=== PATIENT | female | born 1950 | race Caucasian/White ===

== ENCOUNTER 2018-11-19 23:08 | Emergency (ER) | payer OTHER ==
[2018-11-19 23:30] VITALS: TEMP 97.5; BMI 23.5
--- NOTE | 2018-11-20 01:10 | PDOC ---
History of Present Illness - General Chief Complaint: Pain Stated Complaint: POSSIBLE FX LT WRIST Time Seen by Provider: 11/20/18 01:09 History Source: Patient Exam Limitations: No Limitations - History of Present Illness Initial Comments: 11/20/18 01:23 68yo woman, pmh htn, high cholesterol, pituitary tumor, multiple LUE fractures with hardware fixation presenting after a fall onto LUE. Reports hearing a popping sound and losing the ability to pronate her left wrist. Endorses immediate swelling after the event. Has been icing the location and taking tylenol for pain control to good effect. Denies numbness / tingling in the fingers. PMH: as above PSH: as above Allergies: Ampicillin / PCN - Rash (remote) - denies anaphylaxis Codeine - nausea Past History - Past Medical History Allergies/Adverse Reactions: Allergies Allergy/AdvReac Type Severity Reaction Status Date / Time ampicillin Allergy Verified 12/28/12 20:39 Penicillins Allergy Verified 12/28/12 20:39 codeine AdvReac Verified 12/28/12 20:39 Home Medications: Ambulatory Orders Atorvastatin Ca [Lipitor -] 40 mg PO HS 01/23/13 Cabergoline [Dostinex] 0.5 mg PO DAILY 01/23/13 Docosahexanoic Acid/Epa [Fish Oil Softgel] 1 each PO DAILY 01/23/13 Hydrochlorothiazide [Hctz -] 12.5 mg PO DAILY 01/23/13 Quinapril HCl [Accupril] 40 mg PO DAILY 01/23/13 Cancer: Yes (pitutary tumor) COPD: No HTN: Yes Hypercholesterolemia: Yes - Surgical History Neurologic Surgery: Yes (pitutary tumor removal) - Immunization History Td Vaccination: Yes TDAP Vaccination: Yes Immunization Up to Date: Yes - Suicide/Smoking/Psychosocial Hx Smoking Status: No Smoking History: Never smoked Number of Cigarettes Smoked Daily: 0 Hx Alcohol Use: No Drug/Substance Use Hx: No Review of Systems - Review of Systems Able to Perform ROS?: Yes Is the patient limited Danish proficient: No *Physical Exam - Vital Signs Last Vital Signs Temp Pulse Resp BP Pulse Ox 97.5 F L 63 20 135/70 96 11/19/18 23:21 11/19/18 23:21 11/19/18 23:21 11/19/18 23:21 11/19/18 23:21 - Physical Exam Comments: 11/20/18 01:28 VS: reviewed, afebrile, vitals stable Gen: WDWN, sitting in bed with ice pack on her wrist HEENT: normal morphologies, EOMI, NCAT CV: RRR Pulm: normal work of breathing, comfortable Extremities: 2+ radial pulses, normal capillary refill bilaterally, surgical scars overlying left arm, left distal forearm with swelling on dorsum, no ecchymosis or erythema, not grossly displaced, forearm compartments soft Neuro: symmetric sensation in hands and fingers, exam limited by pain with supination of the left forearm. MSE: alert and oriented Medical Decision Making - Medical Decision Making 11/20/18 01:33 68yo woman, pmh htn, high cholesterol, pituitary tumor s/p resection, multiple LUE fractures with hardware fixation presenting after a fall onto LUE at 7PM this evening. History concerning for FOOSH with audible pop, 2x prior fracture fixation in LUE, physical exam notable for limited ROM on supination / pronation on the left, neurovascularly intact with soft compartments. Together concerning for possible fracture. - Pain well controlled with home acetaminophen - Xray hand, wrist, forearm, elbow *DC/Admit/Observation/Transfer Diagnosis at time of Disposition: Wrist pain, left Fall Qualifiers: Encounter type: initial encounter Qualified Code(s): W19.XXXA - Unspecified fall, initial encounter - Discharge Dispostion Disposition: HOME Condition at time of disposition: Improved Decision to Admit order: No - Referrals Referrals: Manuel Barajas MD [Staff Physician] - Dave Greer DO [Staff Physician] - Alvaro York MD [Primary Care Provider] - Chris Lynn MD [Staff Physician] - - Patient Instructions Printed Discharge Instructions: How To Perform RICE (Rest, Ice, Compress, Elevate), DI for Wrist Pain Additional Instructions: You came to the ED for arm pain. Xrays did not show acute pathology. You can take [id number] tylenol for pain. Follow the instructions on the medication bottle. Please review the handout about R.I.C.E (rest, ice, compression, elevation) We have referred you to an orthopedist. Call and make an appointment if your pain does not improve in the next 2-3 days. Immediate medical attention is required if you experience: any focal numbness or weakness, coldness in your limb, or any new or concerning symptoms. If you think you are having an emergency, call for emergency medical services or present to the emergency department right away. - Post Discharge Activity
--- NOTE | 2018-11-20 01:50 | PDOC ---
Documentation entered by Bel Kaur SCRIBE, acting as scribe for Nikki Baker MD. Nikki Baker MD: This documentation has been prepared by the Natasha ayala Xhesika, SCRIBE, under my direction and personally reviewed by me in its entirety. I confirm that the documentation accurately reflects all work, treatment, procedures, and medical decision making performed by me. Attending Attestation - Resident Resident Name: Amaury Ott - HPI HPI: 11/20/18 01:44 The patient is a 68 year old female with a significant medical history of HTN, high cholesterol, pituitary tumor, multiple LUE fractures with hardware fixation who presents to the ED with L wrist pain s/p fall. The patient states she tripped over a pool cover, fell on her outstretched hands and heard a popping sound. The patient states her wrist immediately swelled and she has been icing her wrist and taking tylenol with mild relief of symptoms. The patient denies hitting head or LOC. The patient denies chest pain, shortness of breath, headache and dizziness. Denies fever, chills, nausea, vomit, diarrhea and constipation. Denies dysuria, frequency, urgency and hematuria. Allergies: Ampicillin, Codeine - Physicial Exam PE: 11/20/18 01:45 GENERAL: Awake, alert, and fully oriented, in no acute distress HEAD: No signs of trauma EYES: PERRLA, EOMI, sclera anicteric, conjunctiva clear ENT: Auricles normal inspection, hearing grossly normal, nares patent, oropharynx clear without exudates. Moist mucosa NECK: Normal ROM, supple, no lymphadenopathy, JVD, or masses LUNGS: Breath sounds equal, clear to auscultation bilaterally. No wheezes, and no crackles HEART: Regular rate and rhythm, normal S1 and S2, no murmurs, rubs or gallops ABDOMEN: Soft, nontender, normoactive bowel sounds. No guarding, no rebound. No masses EXTREMITIES: (+) L wrist distal radius tenderness with slight deformity. Normal range of motion, no edema. No clubbing or cyanosis. No cords, erythema. NEUROLOGICAL: Cranial nerves II through XII grossly intact. Normal speech SKIN: Warm, Dry, normal turgor, no rashes or lesions noted. - Medical Decision Making 11/20/18 01:46 Pt presents to the ED complaining of L wrist pain after a fall on outstretched hands. + slight deformity to the L radius. Will check xray to evaluate for LUE fracture. 11/20/18 01:48
--- NOTE | 2018-11-20 02:31 | PDOC ---
*Physical Exam - Vital Signs Last Vital Signs Temp Pulse Resp BP Pulse Ox 97.5 F L 63 20 135/70 96 11/19/18 23:21 11/19/18 23:21 11/19/18 23:21 11/19/18 23:21 11/19/18 23:21 Medical Decision Making - Medical Decision Making 68yo woman, pmh htn, high cholesterol, pituitary tumor, multiple LUE fractures with hardware fixation presenting after a fall onto LUE. Reports hearing a popping sound and losing the ability to pronate her left wrist. Endorses immediate swelling after the event. Has been icing the location and taking tylenol for pain control to good effect. Denies numbness / tingling in the fingers. 68yo F with PMH of HTN, HLD, pituitary tumor, LUE fractures s/p surgical fixation presenting after fall and complaining of LUE pain. Radiographs without acute pathology, my impression Wrist splint in place Plan to discharge with orthopedic follow-up 11/20/18 02:25 *DC/Admit/Observation/Transfer Diagnosis at time of Disposition: Wrist pain, left Fall Qualifiers: Encounter type: initial encounter Qualified Code(s): W19.XXXA - Unspecified fall, initial encounter - Discharge Dispostion Disposition: HOME Condition at time of disposition: Improved - Referrals Referrals: Alvaro York MD [Primary Care Provider] - Manuel Barajas MD [Staff Physician] - Chris Lynn MD [Staff Physician] - Dave Greer DO [Staff Physician] - - Patient Instructions Printed Discharge Instructions: How To Perform RICE (Rest, Ice, Compress, Elevate), DI for Wrist Pain Additional Instructions: You came to the ED for arm pain. Xrays did not show acute pathology. You can take [id number] tylenol for pain. Follow the instructions on the medication bottle. Please review the handout about R.I.C.E (rest, ice, compression, elevation) We have referred you to an orthopedist. Call and make an appointment if your pain does not improve in the next 2-3 days. Immediate medical attention is required if you experience: any focal numbness or weakness, coldness in your limb, or any new or concerning symptoms. If you think you are having an emergency, call for emergency medical services or present to the emergency department right away. - Post Discharge Activity
[2018-11-20 02:42] VITALS: BP 130/70; PULSE 78
== END 2018-11-20 02:38 | disposition home or self-care (01) ==
LOC: JER 23:08
PROC: 2W3DX1Z Immobilization of Left Lower Arm using Splint (ICD-10-PCS; principal; 2018-11-19)
DX: M25.532 Pain in left wrist (principal); W01.0XXA Fall on same level from slipping, tripping and stumbling without subsequent striking against object, initial encounter; Y93.89 Activity, other specified; Y92.89 Other specified places as the place of occurrence of the external cause; Y99.8 Other external cause status; I10 Essential (primary) hypertension; E78.00 Pure hypercholesterolemia, unspecified; Z87.81 Personal history of (healed) traumatic fracture
CPT/HCPCS: 29125; 73070-TC-LT-FY; 73090-TC-LT-FY; 73110-TC-LT-FY; 73130-TC-LT-FY; 99281-25

== ENCOUNTER 2020-08-16 14:40 | Emergency (ER) | payer OTHER ==
[2020-08-16 14:47] VITALS: BMI 21.1
[2020-08-16 15:51] VITALS: TEMP 98.1
[2020-08-16 17:27] LABS: BASO % 1.5 % (0-2.0); EOS % 2.8 % (0-4.5); HEMOGLOBIN 13.7 GM/dL (10.7-15.3); LYMPH % 27.7 % (8-40); MCH 28.6 pg (25.7-33.7); MCHC 33.3 g/dl (32.0-36.0); MEAN CELL VOLUME 85.6 fl (80-96); MEAN PLT VOLUME 7.4 fl (7.5-11.1); MONO % 7.6 % (3.8-10.2); NEUT % 60.4 % (42.8-82.8); PLATELET COUNT 260 K/MM3 (134-434); RBC 4.79 M/mm3 (3.60-5.2); RDW 13.9 % (11.6-15.6); WHITE BLOOD COUNT 5.3 K/mm3 (4.0-10.0)
[2020-08-16] MEDS ORDERED: cloNIDine HCL 0.1 MG TABLET PO ONE (17:38)
[2020-08-16 17:44] LABS: CHLORIDE 102 mmol/L (98-107); SODIUM 140 mmol/L (136-145)
[2020-08-16 17:46] LABS: ALBUMIN 4.2 g/dl (3.4-5.0); ANION GAP 7 MMOL/L (8-16); BLOOD UREA NITROGEN 14.3 mg/dL (7-18); CALCIUM 10.7 mg/dL (8.5-10.1); CO2 32 mmol/L (21-32); GLUCOSE,RANDOM 88 mg/dL (74-106); MAGNESIUM 2.8 mg/dL (1.8-2.4)
[2020-08-16 17:49] LABS: CREATININE 0.6 mg/dL (0.55-1.3); SGOT/AST 20 U/L (15-37); SGPT/ALT 24 U/L (13-61)
[2020-08-16] MEDS ORDERED: cloNIDine HCL 0.1 MG TABLET ONE (17:49)
[2020-08-16 17:51] LABS: BILIRUBIN,TOTAL 0.9 mg/dL (0.2-1)
[2020-08-16 17:52] LABS: ALK PHOS 92 U/L (45-117)
[2020-08-16 18:08] LABS: PH,URINE 7.5 (5.0-8.0); URINE APPEARANCE TURBID; URINE BILIRUBIN NEGATIVE (NEGATIVE); URINE COLOR YELLOW; URINE GLUCOSE (UA) NEGATIVE (NEGATIVE); URINE KETONE NEGATIVE (NEGATIVE); URINE LEUK ESTERASE NEGATIVE (NEGATIVE); URINE NITRITE NEGATIVE (NEGATIVE); URINE PROTEIN NEGATIVE (NEGATIVE); URINE UROBILINOGEN 0.2 mg/dL (0.2-1.0)
[2020-08-16 18:56] VITALS: BP 147/92; PULSE 90
== END 2020-08-16 18:56 | disposition home or self-care (01) ==
LOC: JER 14:40
DX: I16.0 Hypertensive urgency (principal); I10 Essential (primary) hypertension
CPT/HCPCS: 36415; 70450-TC; 71046-TC-FY; 80053; 81003; 82550; 83735; 84484; 85025; 86850; 86900; 86901; 87086; 93005; 93010; 99285-25; J0735

== ENCOUNTER 2022-05-12 16:44 | Emergency (ER) | payer OTHER ==
[2022-05-12 18:10] VITALS: BP 143/94; PULSE 89; RESP 20; TEMP 98.3; BMI 22.7
== END 2022-05-12 18:33 | disposition home or self-care (01) ==
LOC: JER 16:44
DX: J11.1 Influenza due to unidentified influenza virus with other respiratory manifestations (principal)
CPT/HCPCS: 0241U-QW; 99283-25